=== PATIENT | male | born 1980 | race Caucasian/White ===

== ENCOUNTER 2021-08-04 23:08 | Emergency (ER) | payer BC ==
[~2021-08-04] VITALS: Ht 182.9 cm; Wt 88.6 kg
[2021-08-05 00:45] VITALS: BP 113/86
== END 2021-08-05 00:45 | disposition home or self-care (01) ==
LOC: ED 23:08
DX: S60.222A Contusion of left hand, initial encounter (principal); Z28.310 Unvaccinated for COVID-19; W50.0XXA Accidental hit or strike by another person, initial encounter; Y93.64 Activity, baseball

== ENCOUNTER → 2024-04-03 | Outpatient (CLI) | payer MEDICAID | LOC: RAD 11:08 | DX: M54.50 Low back pain, unspecified (principal) ==